=== PATIENT | female | born 1985 | race Caucasian/White ===

== ENCOUNTER 2022-03-11 22:10 | Emergency (ER) | payer OTHER ==
[2022-03-11 22:20] VITALS: BP 114/74; RESP 76; TEMP 98.3; BMI 24.4
[2022-03-11] MEDS ORDERED: FAMOTIDINE 20 MG TABLET PO ONE (22:30)
[2022-03-11] MEDS ORDERED: diphenhydrAMINE HCL 25 MG CAPSULE (FP) PO ONE ×2 (22:30→22:35)
[2022-03-11] MEDS ORDERED: DEXAMETHASONE 4 MG TABLET (FP) PO ONE (22:30)
[2022-03-11] MEDS ORDERED: FAMOTIDINE 20 MG TABLET ONE (22:35)
[2022-03-11] MEDS ORDERED: DEXAMETHASONE 4 MG TABLET (FP) ONE ×2 (22:35)
== END 2022-03-11 22:40 | disposition home or self-care (01) ==
LOC: FER 22:10
DX: K13.0 Diseases of lips (principal); D84.1 Defects in the complement system
CPT/HCPCS: 99283-25

== ENCOUNTER 2022-03-17 03:09 | Emergency (ER) | payer OTHER ==
[2022-03-17 03:18] VITALS: BP 116/81; PULSE 85; RESP 16; TEMP 98.7; BMI 24.7
[2022-03-17] MEDS ORDERED: FAMOTIDINE 20 MG TABLET PO ONE (03:22)
[2022-03-17] MEDS ORDERED: diphenhydrAMINE HCL 50 MG CAPSULE PO ONE (03:22)
[2022-03-17] MEDS ORDERED: predniSONE 20 MG TABLET (UD) PO ONE (03:22)
[2022-03-17] MEDS ORDERED: diphenhydrAMINE HCL 50 MG CAPSULE ONE (03:26)
[2022-03-17] MEDS ORDERED: predniSONE 20 MG TABLET (UD) ONE (03:26)
[2022-03-17] MEDS ORDERED: FAMOTIDINE 20 MG TABLET ONE (03:26)
== END 2022-03-17 03:32 | disposition home or self-care (01) ==
LOC: FER 03:09
DX: T78.40XA Allergy, unspecified, initial encounter (principal)
CPT/HCPCS: 99283-25

== ENCOUNTER 2022-05-01 19:07 | Emergency (ER) | payer OTHER ==
[2022-05-01 19:20] VITALS: PULSE 77; RESP 18; TEMP 98.9; BMI 24.7
[2022-05-01] MEDS ORDERED: diphenhydrAMINE HCL 50 MG CAPSULE PO ONE (19:52)
[2022-05-01] MEDS ORDERED: predniSONE 20 MG TABLET (UD) PO ONE (19:53)
[2022-05-01] MEDS ORDERED: predniSONE 20 MG TABLET (UD) ONE (20:05)
[2022-05-01] MEDS ORDERED: diphenhydrAMINE HCL 25 MG CAPSULE (FP) PO ONE (20:05)
[2022-05-01 21:05] VITALS: BP 119/82
== END 2022-05-01 21:05 | disposition home or self-care (01) ==
LOC: FER 19:07
DX: D84.1 Defects in the complement system (principal)
CPT/HCPCS: 99283-25

== ENCOUNTER 2022-06-07 10:00 | Emergency (ER) | payer OTHER ==
[2022-06-07 10:25] VITALS: RESP 18; BMI 24.7
[2022-06-07] MEDS ORDERED: SODIUM CHLORIDE 1,000 ML IV STA (10:46)
[2022-06-07 11:52] LABS: HEMATOCRIT 38.1 % (32.4-45.2); HEMOGLOBIN 13.1 G/dL (10.7-15.3); MCH 32.3 pg (25.7-33.7); MCHC 34.4 g/dl (32.0-36.0); MEAN CELL VOLUME 93.8 fl (80-96); MEAN PLT VOLUME 10.1 fl (7.5-11.1); RBC 4.06 10^6/uL (3.60-5.2); RDW 12.8 % (11.6-15.6); WHITE BLOOD COUNT 6.1 10^3/uL (4.0-10.8)
[2022-06-07 11:58] LABS: ALBUMIN 4.2 g/dl (3.4-5.0); ALK PHOS 49 U/L (45-117); ANION GAP 4 MMOL/L (8-16); BILIRUBIN,TOTAL 0.8 mg/dl (0.2-1); CALCIUM 9.3 mg/dl (8.5-10); CHLORIDE 104 mmol/L (98-107); CO2 30 mmol/L (21-32); CREATININE 0.7 mg/dl (0.55-1.3); GLUCOSE,RANDOM 74 mg/dl (74-106); POTASSIUM 4.3 mmol/L (3.5-5.1); SGOT/AST 27 U/L (15-37); SGPT/ALT 36 U/L (13-61); SODIUM 138 mmol/L (136-145); TOT PROT 7.1 g/dl (6.4-8.2)
[2022-06-07 13:35] LABS: PLATELET ESTIMATE ADEQUATE
[2022-06-07 14:48] VITALS: BP 112/68; PULSE 72; TEMP 98.4
== END 2022-06-07 15:19 | disposition home or self-care (01) ==
LOC: FER 10:00
PROC: 3E0337Z Introduction of Electrolytic and Water Balance Substance into Peripheral Vein, Percutaneous Approach (ICD-10-PCS; principal; 2022-06-07)
DX: R42 Dizziness and giddiness (principal); R00.2 Palpitations; R53.1 Weakness
CPT/HCPCS: 36415; 80053; 81003; 82728; 83735; 84443; 84484; 85027; 85379; 93005; 99284-25